=== PATIENT | male | born 1970 | race African-American/Black ===

== ENCOUNTER 2017-10-12 11:41 | Inpatient (IN) | payer OTHER ==
[~2017-10-12] VITALS: Ht 188 cm; Wt 131.1 kg
[2017-10-12] MEDS ORDERED: CLINDAMYCIN 600MG IV 50 ML IV ONE (13:15)
[2017-10-12 13:38] LABS: Basophils # (auto) 0 uL; Basophils % (auto) 0.4 % (0.0-2.0); Eosinophils # (auto) 0.2 uL; Eosinophils % (auto) 1.6 % (0.0-7.0); Hematocrit 43.7 % (41.0-53.0); Hemoglobin 14.5 g/dL (13.5-17.5); Lymphocytes # (auto) 1.8 uL; Lymphocytes % (auto) 18.7 % (10.0-50.0); Mean Corpuscular Hemoglobin 27.5 pg (28.0-32.0); Mean Corpuscular Hgb Conc. 33.2 g/dL (32.0-36.0); Monocytes # (auto) 1.2 uL; Monocytes % (auto) 12.8 % (0.0-12.0); Neutrophils # (auto) 6.5 uL; Neutrophils % (auto) 66.5 % (37.0-80.0); Nucleated Red Blood Cells % 0.1 %; Platelet Count (auto) 275 10^3/uL (140-450); Red Blood Cells 5.27 10^6/uL (4.5-5.90); Red Cell Distribution Width 14.7 % (11.8-14.3); White Blood Cell 9.7 10^3/uL (4.4-10.8)
[2017-10-12 13:46] LABS: Albumin 3.4 g/dL (3.4-5.0); Calcium 9.1 mg/dL (8.5-10.1); INR 2.69 (0.9-1.15); Partial Thromboplastin Time 47.5 sec (22.64-33.71); Potassium 3.8 mmol/L (3.5-5.1); Prothrombin Time 29.6 sec (9.37-12.3)
[2017-10-12 13:49] LABS: BUN/Creatinine Ratio 18.8; Bilirubin, Total 0.7 mg/dL (0.2-1.0); Total Protein 9.1 g/dL (6.4-8.2)
[2017-10-12] MEDS ORDERED: NITROGLYCERIN 0.4 MG SL TAB SL PRN (15:45)
[2017-10-12] MEDS ORDERED: MORPHINE SULFATE 4 MG/ML SYR/VIAL IV PRN (15:45)
[2017-10-12] MEDS ORDERED: WARFARIN SODIUM 2 MG TAB PO SCH (17:00)
[2017-10-12] MEDS: VANCOMYCIN 1GM/250ML 250 ML IV SCH (17:08)
[2017-10-12] MEDS ORDERED: WARF7.5T PO (18:42)
[2017-10-12 22:05] VITALS: BP 116/63
[2017-10-13] MEDS: VANCOMYCIN 1GM/250ML 250 ML IV SCH ×2 (04:31→17:25)
[2017-10-13 05:36] VITALS: BP 128/68
[2017-10-13 06:36] LABS: INR 3.45 (0.9-1.15); Partial Thromboplastin Time 51.7 sec (22.64-33.71); Prothrombin Time 38.1 sec (9.37-12.3)
[2017-10-13 09:00] VITALS: BP 121/64
[2017-10-13] MEDS ORDERED: IOHEXOL 350 MG/ML 100ML IJ ONE ×2 (09:31)
[2017-10-13] MEDS: POTASSIUM CHL 10 Meq TABLET PO SCH (09:55)
[2017-10-13] MEDS: FUROSEMIDE 40 MG TAB PO SCH (09:55)
[2017-10-13] MEDS: ENOXAPARIN SOD 40 MG/0.4 ML SYRINGE SC SCH (09:55)
[2017-10-13 12:26] VITALS: BP 134/88
[2017-10-13 16:11] VITALS: BP 117/60
[2017-10-13 20:00] VITALS: BP 99/51
[2017-10-13 21:43] VITALS: BP 99/51
[2017-10-14] VITALS (7 sets, daily range): BP systolic 118–143; BP diastolic 48–83
[2017-10-14 06:01] LABS: Basophils # (auto) 0 uL; Basophils % (auto) 0.5 % (0.0-2.0); Eosinophils # (auto) 0.2 uL; Eosinophils % (auto) 2.1 % (0.0-7.0); Hematocrit 41.9 % (41.0-53.0); Hemoglobin 13.7 g/dL (13.5-17.5); Lymphocytes # (auto) 1.4 uL; Lymphocytes % (auto) 17.4 % (10.0-50.0); Mean Corpuscular Hgb Conc. 32.8 g/dL (32.0-36.0); Mean Corpuscular Volume 82.3 fL (80.0-100.0); Monocytes # (auto) 0.9 uL; Monocytes % (auto) 11.9 % (0.0-12.0); Neutrophils # (auto) 5.4 uL; Neutrophils % (auto) 68.1 % (37.0-80.0); Platelet Count (auto) 304 10^3/uL (140-450); Red Cell Distribution Width 14.7 % (11.8-14.3); White Blood Cell 7.9 10^3/uL (4.4-10.8)
[2017-10-14 06:19] LABS: Calcium 8.8 mg/dL (8.5-10.1); Potassium 3.8 mmol/L (3.5-5.1)
[2017-10-14 06:21] LABS: BUN/Creatinine Ratio 13.5; INR 2.51 (0.9-1.15); Prothrombin Time 27.6 sec (9.37-12.3)
[2017-10-14] MEDS: VANCOMYCIN 1GM/250ML 250 ML IV SCH ×3 (06:35→21:00)
[2017-10-14] MEDS: POTASSIUM CHL 10 Meq TABLET PO SCH (10:25)
[2017-10-14] MEDS: FUROSEMIDE 40 MG TAB PO SCH (10:25)
[2017-10-14] MEDS: ENOXAPARIN SOD 40 MG/0.4 ML SYRINGE SC SCH (10:26)
[2017-10-14] MEDS: ASCORBIC ACID 500 MG TAB PO SCH (20:59)
[2017-10-15 05:00] VITALS: BP 120/76
[2017-10-15 05:43] LABS: Albumin 2.9 g/dL (3.4-5.0); BUN/Creatinine Ratio 14.4; Calcium 8.8 mg/dL (8.5-10.1)
[2017-10-15 05:46] LABS: Bilirubin, Total 0.9 mg/dL (0.2-1.0); Total Protein 8.4 g/dL (6.4-8.2)
[2017-10-15] MEDS: VANCOMYCIN 1GM/250ML 250 ML IV SCH ×3 (05:56→21:03)
[2017-10-15 08:00] VITALS: BP 118/71
[2017-10-15 09:00] VITALS: BP 118/71
[2017-10-15] MEDS: ENOXAPARIN SOD 40 MG/0.4 ML SYRINGE SC SCH (09:39)
[2017-10-15] MEDS: MULTIPLE VITAMIN TAB PO SCH (09:39)
[2017-10-15] MEDS: POTASSIUM CHL 10 Meq TABLET PO SCH (09:40)
[2017-10-15] MEDS: ASCORBIC ACID 500 MG TAB PO SCH ×2 (09:40→21:03)
[2017-10-15] MEDS: FUROSEMIDE 40 MG TAB PO SCH (09:40)
[2017-10-15 13:00] VITALS: BP 124/77
[2017-10-15] MEDS: SILVER SULFADIAZINE 1 % TOPICAL CREAM 50GM TOP SCH (15:12)
[2017-10-15 17:14] VITALS: BP 130/76
[2017-10-15 22:12] VITALS: BP 130/74
[2017-10-16] VITALS (7 sets, daily range): BP systolic 110–158; BP diastolic 69–78
[2017-10-16] MEDS: VANCOMYCIN 1GM/250ML 250 ML IV SCH ×3 (05:02→21:11)
[2017-10-16] MEDS: POTASSIUM CHL 10 Meq TABLET PO SCH (11:22)
[2017-10-16] MEDS: ASCORBIC ACID 500 MG TAB PO SCH ×2 (11:23→21:11)
[2017-10-16] MEDS: ENOXAPARIN SOD 40 MG/0.4 ML SYRINGE SC SCH (11:23)
[2017-10-16] MEDS: FUROSEMIDE 40 MG TAB PO SCH (11:23)
[2017-10-16] MEDS: MULTIPLE VITAMIN TAB PO SCH (11:23)
[2017-10-16] MEDS: SILVER SULFADIAZINE 1 % TOPICAL CREAM 50GM TOP SCH (11:24)
[2017-10-17] MEDS: VANCOMYCIN 1GM/250ML 250 ML IV SCH ×3 (04:54→21:18)
[2017-10-17 05:00] VITALS: BP 122/74
[2017-10-17 08:00] VITALS: BP 141/71
[2017-10-17 09:00] VITALS: BP 120/72
[2017-10-17] MEDS: POTASSIUM CHL 10 Meq TABLET PO SCH (11:40)
[2017-10-17] MEDS: ASCORBIC ACID 500 MG TAB PO SCH ×2 (11:41→22:33)
[2017-10-17] MEDS: FUROSEMIDE 40 MG TAB PO SCH (11:41)
[2017-10-17] MEDS: MULTIPLE VITAMIN TAB PO SCH (11:41)
[2017-10-17] MEDS: SILVER SULFADIAZINE 1 % TOPICAL CREAM 50GM TOP SCH (11:41)
[2017-10-17] MEDS: ENOXAPARIN SOD 40 MG/0.4 ML SYRINGE SC SCH (11:41)
[2017-10-17 11:54] LABS: BUN/Creatinine Ratio 18.6
[2017-10-17 13:00] VITALS: BP 117/77
[2017-10-17 17:00] VITALS: BP 112/71
[2017-10-17] MEDS: HYDROcodone-ACET 10/325MG TAB PO PRN (21:19)
[2017-10-17 22:00] VITALS: BP 106/83
[2017-10-18] MEDS: VANCOMYCIN 1GM/250ML 250 ML IV SCH ×3 (04:48→20:56)
[2017-10-18 05:00] VITALS: BP 100/70
[2017-10-18 09:37] VITALS: BP 143/70
[2017-10-18] MEDS: SILVER SULFADIAZINE 1 % TOPICAL CREAM 50GM TOP SCH (10:12)
[2017-10-18] MEDS: MULTIPLE VITAMIN TAB PO SCH (10:13)
[2017-10-18] MEDS: ASCORBIC ACID 500 MG TAB PO SCH ×2 (10:13→22:05)
[2017-10-18] MEDS: ENOXAPARIN SOD 40 MG/0.4 ML SYRINGE SC SCH (10:13)
[2017-10-18] MEDS: FUROSEMIDE 40 MG TAB PO SCH (10:14)
[2017-10-18] MEDS: POTASSIUM CHL 10 Meq TABLET PO SCH (10:14)
[2017-10-18 13:00] VITALS: BP 143/70
[2017-10-18] MEDS: HYDROcodone-ACET 10/325MG TAB PO PRN (14:21)
[2017-10-18 16:37] VITALS: BP 139/83
[2017-10-18 22:36] VITALS: BP 112/67
[2017-10-19] MEDS: VANCOMYCIN 1GM/250ML 250 ML IV SCH ×2 (04:50→13:00)
[2017-10-19 04:54] VITALS: BP 103/66
[2017-10-19 08:00] VITALS: BP 102/60
[2017-10-19 08:50] VITALS: BP 102/60
[2017-10-19] MEDS: SILVER SULFADIAZINE 1 % TOPICAL CREAM 50GM TOP SCH (10:00)
[2017-10-19] MEDS: MULTIPLE VITAMIN TAB PO SCH (10:20)
[2017-10-19] MEDS: FUROSEMIDE 40 MG TAB PO SCH (10:21)
[2017-10-19] MEDS: ASCORBIC ACID 500 MG TAB PO SCH (10:21)
[2017-10-19] MEDS: POTASSIUM CHL 10 Meq TABLET PO SCH (10:21)
[2017-10-19] MEDS: ENOXAPARIN SOD 40 MG/0.4 ML SYRINGE SC SCH (10:21)
[2017-10-19 13:12] VITALS: BP 114/80
[2017-10-19 13:22] VITALS: BP 114/80
== END 2017-10-19 15:08 | DRG 603 ==
LOC: ER 11:41 → EEVIPCON 11:42 → OVERFLOW 11:42 → EAST 19:21
PROVIDERS: ADMIT Internal Medicine; ATTEND Internal Medicine
DX: L03.116 Cellulitis of left lower limb (principal); L97.929 Non-pressure chronic ulcer of unspecified part of left lower leg with unspecified severity; B95.61 Methicillin susceptible Staphylococcus aureus infection as the cause of diseases classified elsewhere; B95.4 Other streptococcus as the cause of diseases classified elsewhere; Z86.718 Personal history of other venous thrombosis and embolism; Z90.89 Acquired absence of other organs; Z84.89 Family history of other specified conditions; Z82.3 Family history of stroke; Z86.711 Personal history of pulmonary embolism
CPT/HCPCS: 36415; 73706; 80048; 80053; 80202; 82565; 85025; 85379; 85610; 85730; 87040; 87077; 87186; 87205; 93926; 93971; 96365; 96366; 96367; J3490

== ENCOUNTER → 2023-12-27 | Outpatient (CLI) | payer OTHER ==
[~2023-12-27] MED LIST: IOHEXOL 300 MG/ML 100ML BOTTLE IJ ONE
[2023-12-27 10:43] LABS: Alanine Aminotransferase 10 U/L (7-40); Albumin 4.9 g/dL (3.2-4.8); Alkaline Phosphatase 87 U/L (46-116); Anion Gap 7 (5-15); Aspartate Aminotransferase 21 U/L (13-40); BUN/Creatinine Ratio 11.1 (10.0-20.0); Bilirubin, Total 1.4 mg/dL (0.2-1.0); Blood Urea Nitrogen 13 mg/dL (9-23); Calcium 10.6 mg/dL (8.5-10.1); Carbon Dioxide 27 mmol/L (20-30); Chloride 104 mmol/L (98-107); Glucose 83 mg/dL (74-106); Potassium 4.1 mmol/L (3.5-5.1); Sodium 138 mmol/L (136-145); Total Protein 8.6 g/dL (5.7-8.2)
== END | disposition home or self-care (01) ==
LOC: EEVIPCON 09:15 → XYW 09:15
PROVIDERS: ATTEND Personal Emergency Response Attendant
DX: N40.0 Benign prostatic hyperplasia without lower urinary tract symptoms (principal); K42.9 Umbilical hernia without obstruction or gangrene
CPT/HCPCS: 36415; 71275; 74178; 80053; Q9967

== ENCOUNTER → 2024-09-13 | Outpatient (CLI) | payer OTHER ==
--- NOTE | 2024-09-13 08:48 | DVH ---
Exam: CT CT AB PEL WO CON-NO ORAL OR IV History: ELEVATED SERUM PSA LEVEL Comparison Study: None available at time of dictation. Technique: Multidetector spiral CT of the abdomen and pelvis was performed from lung bases to pubic s ymphysis. Imaging was performed without intravenous contrast. Coronal and sagittal multiplanar refor mats were obtained from the axial data set by the technologist. Radiation Dose : 1. Abdomen/Pelvis: CTDIvol 22.24 mGy, DLP 1342.56 mGy*cm. Findings: Evaluation of vasculature and solid organs is limited due to lack of intravenous contrast use. Lung Bases: Lung bases are clear. Visualized portions of the heart and pericardium are unremarkable. Liver: The liver is normal in size. No focal lesions. Gallbladder and Biliary Tree: The gallbladder is unremarkable. No intrahepatic or extrahepatic bilia ry ductal dilatation. Spleen: Unremarkable Pancreas: The pancreas is grossly unremarkable. Adrenal Glands: Unremarkable Kidneys: Kidneys are unremarkable without calculi or hydronephrosis. GI tract: The stomach is grossly normal in appearance. No evidence of small bowel wall thickening or abnormal dilatation to suggest bowel obstruction. The colon is unremarkable. The appendix is not vi sualized, however no inflammatory changes in the right lower quadrant to suggest acute appendicitis. Peritoneum/mesentery/retroperitoneum. No evidence of free intraperitoneal air. No ascites. Lymph nodes: There are enlarged bilateral pelvic masses, measuring 4.8 x 8.2 cm on the left and 3.6 x 4.0 cm on the right. These are suspicious for enlarged external iliac lymph nodes. There are additi onal lymph nodes posterolateral to the prostate measuring 2.1 cm in short axis. There are enlarged le ft inguinal lymph nodes measuring up to 2.0 cm in short axis. Abdominal Wall: There are two adjacent fat and mesenteric vasculature containing umbilical and infrau mbilical hernias. The fascial defect measures 3.3 cm and 1.1 cm. There is extensive fat stranding wi thin the hernia. Vasculature: The visualized abdominal aorta is normal in size and caliber. Evaluation of abdominal a nd pelvic vessels is limited due to lack of intravenous contrast. Urinary Bladder: Grossly unremarkable for degree of distention. Pelvic Organs: The prostate is enlarged measuring 7.3 cm in maximum transverse dimension. Musculoskeletal: There is an old left 10th rib fracture. There are lucencies in the endplates at L3-L 4 and L4-L5 most compatible with Schmorl's nodes. There is a mixed sclerotic and lytic lesion in the L5 vertebral body with striated appearance suggestive of a hemangioma. No suspicious sclerotic lesio ns. IMPRESSION: 1. Enlarged prostate measuring 7.3 cm in maximum transverse diameter. Correlation with prostate tissu e sampling and/or MRI is recommended. 2. Bulky pelvic lymphadenopathy concerning for metastatic adenopathy. 3. Fat containing umbilical and infraumbilical hernias with fat stranding suggesting inflammation. In carcerated fat containing hernia should be excluded clinically.
== END | disposition home or self-care (01) ==
LOC: CT 07:46
DX: K42.9 Umbilical hernia without obstruction or gangrene (principal); N40.0 Benign prostatic hyperplasia without lower urinary tract symptoms; G95.89 Other specified diseases of spinal cord; R59.1 Generalized enlarged lymph nodes
CPT/HCPCS: 74176